=== PATIENT | male | born 1980 | race Hispanic/Latino ===

== ENCOUNTER 2022-08-16 07:32 | Emergency (ER) | payer BC, OTHER ==
[~2022-08-16] VITALS: Ht 170.2 cm; Wt 94.3 kg
[2022-08-16 07:59] LABS: BASOPHILS % (AUTO) 0.6 % (0.0-5.0); EOSINOPHILS % (AUTO) 1.5 % (0.0-8.0); HEMATOCRIT 41.9 % (42-54); LYMPHOCYTES % (AUTO) 15.5 % (21.0-51.0); MEAN CORPUSCULAR HEMOGLOBIN 28.1 pg (27.0-33.0); MEAN CORPUSCULAR HGB CONC 33.9 g/dL (32.0-36.0); MONOCYTES % (AUTO) 10.5 % (3.0-13.0); NEUTROPHILS % (AUTO) 71.2 % (40.0-77.0); PLATELET COUNT (AUTO) 199 K/uL (130-400); RED BLOOD CELL COUNT(AUTO) 5.05 MIL/uL (4.50-6.20); RED CELL DISTRIBUTION WIDTH 12.2 % (11.0-15.5); WHITE BLOOD COUNT (AUTO) 5.3 K/uL (4.8-10.8)
[2022-08-16 08:17] LABS: ALBUMIN 3.6 g/dL (3.5-5.0); CREATININE 0.9 mg/dL (0.5-1.5); POTASSIUM 4.1 mmol/L (3.5-5.1); TOTAL PROTEIN, SERUM 6.7 g/dL (6.0-8.3)
[2022-08-16] MEDS ORDERED: PROMETHAZINE HCL 25 MG/ML 1ML AMPULE IM ONE (08:30)
[2022-08-16] MEDS ORDERED: MECLIZINE HCL 25 MG TABLET PO ONE (08:30)
[2022-08-16] MEDS ORDERED: SOLU-MEDROL 125MG VIAL IVP ONE (10:00)
[2022-08-16] MEDS ORDERED: LORAZEPAM 1 MG TABLET PO ONE (10:00)
[2022-08-16] MEDS ORDERED: PRED20TA3 PO (13:24)
[2022-08-16] MEDS ORDERED: MECL-160 PO (13:24)
[2022-08-16] MEDS ORDERED: PROM25TA7 PO (13:24)
[2022-08-16 13:40] VITALS: BP 133/82
== END 2022-08-16 13:42 | disposition home or self-care (01) ==
LOC: EDH 07:32
DX: H81.10 Benign paroxysmal vertigo, unspecified ear (principal); K21.9 Gastro-esophageal reflux disease without esophagitis; I10 Essential (primary) hypertension; E78.00 Pure hypercholesterolemia, unspecified
CPT/HCPCS: 99285; 96374; 70450; 84484; 80053; 85025; 36415; 93005; 96372; J2930; J2550